=== PATIENT | male | born 1990 | race Caucasian/White ===

== ENCOUNTER 2017-02-16 23:49 | Emergency (ER) | payer OTHER ==
[2017-02-16 23:56] VITALS: RESP 16; TEMP 98.2
[2017-02-17] MEDS ORDERED: ONDANSETRON 4 MG/2 ML VIAL IVP ONE (00:30)
[2017-02-17] MEDS ORDERED: NS 1,000 ML IV ONE ×2 (00:30→01:29)
--- NOTE | 2017-02-17 00:30 | EDPHY ---
H & P Stated Complaint: NVD x3d, epigastric pain, B abd cramping Time Seen by Provider: 02/17/17 00:23 HPI/ROS: Chief Complaint: Nausea, vomiting, diarrhea HPI: 26-year-old male presenting with 2 days of nausea vomiting diarrhea and some crampy abdominal pain. Chart is nausea vomiting 2 days ago. He was unable to keep anything down. Patient was also having diarrhea. No blood or melena. Yesterday vomiting improved but continued nausea pain was not tolerating oral fluids. Diarrhea has improved with persisted. No constipation. Does not have a history of same. No prior surgeries. No recent travel. No fevers or chills. No chest pain or shortness of breath. No other ill contacts or anyone else with similar symptoms. ROS: 10 point Review of Systems is negative except as noted in the HPI. PMH: GERD Medications: Omeprazole, Mariely Allergies: Ceclor Social History: No smoking, occasional alcohol, occasional Family History: non-contributory Physical Exam: Gen: Awake, Alert, No Distress HEENT: Nose: no rhinorrhea Eyes: PERRLA, EOMI Mouth: Moist mucosa Neck: Supple, no JVD Chest: nontender, lungs clear to auscultation Heart: S1, S2 normal, no murmur Abd: Soft, non-tender, no guarding Back: no CVA tenderness, no midline tenderness Ext: no edema, non-tender Skin: no rash Neuro: CN II-XII intact, Sensation grossly intact, Strength 5/5 in bilateral upper and lower extremities - Personal History Current Tetanus/Diphtheria Vaccine: Yes Current Tetanus Diphtheria and Acellular Pertussis (TDAP): Yes - Medical/Surgical History Hx Asthma: Yes Hx Chronic Respiratory Disease: No Hx Diabetes: No Hx Cardiac Disease: No Hx Renal Disease: No Hx Cirrhosis: No Hx Alcoholism: No Hx HIV/AIDS: No Hx Splenectomy or Spleen Trauma: No Other PMH: hx childhood asthma, GERD - Social History Smoking Status: Never smoked Constitutional: Initial Vital Signs Temperature (C) 36.8 C 02/16/17 23:52 Heart Rate 96 02/16/17 23:52 Respiratory Rate 16 02/16/17 23:52 Blood Pressure 133/93 H 02/16/17 23:52 O2 Sat (%) 98 02/16/17 23:52 O2 Delivery Mode Room Air Allergies/Adverse Reactions: [facility] Allergy (Verified 02/16/17 23:57) pollen extracts Allergy (Verified 02/16/17 23:57) Home Medications: Medication Instructions Recorded Mariely Allergy 02/16/17 Omeprazole 02/16/17 Medical Decision Making ED Course/Re-evaluation: Patient's CBC and chemistry are normal. He is feeling improved after Zofran and IV fluids. He is tolerating p.o.. Will discharge with Zofran ODT as needed. Drink plenty of clear liquids. Follow up with primary care physician for further evaluation. Abdominal exam is soft and nontender. - Data Points Laboratory Results: Laboratory Results 02/17/17 00:30 02/17/17 00:30 02/17/17 02/17/17 00:30 00:30 WBC 8.52 10^3/uL 10^3/uL (3.80-9.50) RBC 5.61 10^6/uL 10^6/uL (4.40-6.38) Hgb 17.1 g/dL g/dL (13.7-17.5) Hct 47.4 % % (40.0-51.0) MCV 84.5 fL fL (81.5-99.8) MCH 30.5 pg pg (27.9-34.1) MCHC 36.1 g/dL g/dL (32.4-36.7) RDW 12.0 % % (11.5-15.2) Plt Count 247 10^3/uL 10^3/uL (150-400) MPV 9.1 fL fL (8.7-11.7) Neut % (Auto) 70.1 % % (39.3-74.2) Lymph % (Auto) 17.6 % % (15.0-45.0) [place] % (Auto) 10.6 % % (4.5-13.0) Eos % (Auto) 1.3 % % (0.6-7.6) Baso % (Auto) 0.2 % L % (0.3-1.7) Nucleat RBC Rel Count 0.0 % % (0.0-0.2) Absolute Neuts (auto) 5.97 10^3/uL 10^3/uL (1.70-6.50) Absolute Lymphs (auto) 1.50 10^3/uL 10^3/uL (1.00-3.00) Absolute Monos (auto) 0.90 10^3/uL H 10^3/uL (0.30-0.80) Absolute Eos (auto) 0.11 10^3/uL 10^3/uL (0.03-0.40) Absolute Basos (auto) 0.02 10^3/uL 10^3/uL (0.02-0.10) Absolute Nucleated RBC 0.00 10^3/uL 10^3/uL (0-0.01) Immature Gran % 0.2 % % (0.0-1.1) Immature Gran # 0.02 10^3/uL 10^3/uL (0.00-0.10) Sodium 140 mEq/L mEq/L (134-144) Potassium 3.7 mEq/L mEq/L (3.5-5.2) Chloride 102 mEq/L mEq/L (97-110) Carbon Dioxide 25 mEq/l mEq/l (22-31) Anion Gap 13 mEq/L mEq/L (8-16) BUN 10 mg/dL mg/dL (7-23) Creatinine 1.0 mg/dL mg/dL (0.7-1.3) Estimated GFR > 60 Glucose 108 mg/dL H mg/dL (70-100) Calcium 9.6 mg/dL mg/dL (8.5-10.4) Medications Given: Discontinued Medications Sodium Chloride (Ns) 1,000 mls @ 0 mls/hr IV ONCE ONE PRN Reason: Wide Open Stop: 02/17/17 00:31 Last Admin: 02/17/17 00:36 Dose: 1,000 mls Sodium Chloride (Ns) 1,000 mls @ 0 mls/hr IV ONCE ONE PRN Reason: Wide Open Stop: 02/17/17 01:30 Last Admin: 02/17/17 01:40 Dose: 1,000 mls Ondansetron HCl (Zofran) 4 mg IVP EDNOW ONE Stop: 02/17/17 00:31 Last Admin: 02/17/17 00:36 Dose: 4 mg Departure - Departure Disposition: Home, Routine, Self-Care Clinical Impression: Gastroenteritis, Dehydration Condition: Good Instructions: Dehydration (ED), Gastroenteritis (ED), Acute Nausea and Vomiting (ED) Additional Instructions: Follow up with primary care physician in 2-3 days if symptoms are not improving. Drink plenty of clear liquids. You may take Zofran as needed for nausea. Return for increasing pain, uncontrolled nausea or vomiting, fevers, chills, or any other concerns. Referrals: Rogelio Foote MD [Primary Care Provider] - As per Instructions
[2017-02-17 00:41] LABS: % IMMATURE GRANULYOCYTES 0.2 % (0.0-1.1); ABSOLUTE IMMATURE GRANULOCYTES 0.02 10^3/uL (0.00-0.10); ADD DIFF? NO; ADD MORPH? NO; ADD SCAN? NO; ATYPICAL LYMPHOCYTE FLAG 0 (0-99); FRAGMENT RBC FLAG 0 (0-99); HEMATOCRIT 47.4 % (40.0-51.0); HEMOGLOBIN 17.1 g/dL (13.7-17.5); LEFT SHIFT FLG 10 (0-99); LIPEMIA HEMOLYSIS FLAG 90 (0-99); MEAN CELL HEMOGLOBIN 30.5 pg (27.9-34.1); MEAN CELL HEMOGLOBIN CONCENTR. 36.1 g/dL (32.4-36.7); MEAN CELL VOLUME 84.5 fL (81.5-99.8); MEAN PLATELET VOLUME 9.1 fL (8.7-11.7); PLATELET CLUMPS FLAG 0 (0-99); PLATELET COUNT 247 10^3/uL (150-400); RED BLOOD CELL COUNT 5.61 10^6/uL (4.40-6.38)
[2017-02-17 00:51] LABS: ANION GAP 13 mEq/L (8-16); CALCIUM 9.6 mg/dL (8.5-10.4); CARBON DIOXIDE 25 mEq/l (22-31); CHLORIDE 102 mEq/L (97-110); GLOMERULAR FILTRATION RATE > 60; GLUCOSE 108 mg/dL (70-100); POTASSIUM 3.7 mEq/L (3.5-5.2); SODIUM 140 mEq/L (134-144)
[2017-02-17] MEDS ORDERED: ONDANSETRON 4MG PREPACK#2 BTL TAKEHOME ONE (02:03)
[2017-02-17 02:39] VITALS: BP 130/76; PULSE 70; O2SAT 93
== END 2017-02-17 02:38 | disposition home or self-care (01) ==
DX: K52.9 Noninfective gastroenteritis and colitis, unspecified (principal); J45.909 Unspecified asthma, uncomplicated
CPT/HCPCS: 96374; J2405

== ENCOUNTER → 2017-05-12 | Outpatient (CLI) | payer OTHER | LOC: BMCIMAGING 11:36 | PROVIDERS: ATTEND Emergency Medicine | DX: S69.91XA Unspecified injury of right wrist, hand and finger(s), initial encounter (principal) ==